=== PATIENT | female | born 1990 | race Caucasian/White ===

== ENCOUNTER 2018-11-23 20:38 | Emergency (ER) | payer OTHER ==
[~2018-11-23] VITALS: Ht 157.5 cm; Wt 45.4 kg
[2018-11-23 20:44] VITALS: BP 113/75
--- NOTE | 2018-11-23 20:45 | NUR ---
TO LOBBY A/W BED, RAY HAIR NOTED
--- NOTE | 2018-11-23 21:03 | NUR ---
PT TAKEN TO BED 9
--- NOTE | 2018-11-23 21:05 | NUR ---
ASSUMED CARE OF PT AT THIS TIME. C/O DIFFUSE ABDOMINAL PAIN W/ N/V X 12 HOURS. PT DENIES DIARRHEA, CONSTIPATION, OR URINARY COMPLAINTS. AAOX4 WITH EVEN AND STEADY GAIT; PATIENT STATES PAIN OF 8/10; VSS; PATIENT POSITIONED FOR COMFORT; HOB ELEVATED; BEDRAILS UP X2; BED DOWN. ER MD MADE AWARE OF PT STATUS. WILL CONTINUE TO MONITOR.
--- NOTE | 2018-11-23 21:37 | NUR ---
Dr. Joseph evaluating patient at bedside.
[2018-11-23] MEDS ORDERED: ONDANSETRON 4 MG/2 ML VIAL IVP ONE (22:00)
[2018-11-23] MEDS ORDERED: KETOROLAC 30 MG/ML VIAL IVP ONE (22:00)
[2018-11-23] MEDS ORDERED: NACL 0.9% 1,000 ML IV ONE (22:00)
[2018-11-23 22:45] VITALS: BP 114/74
--- NOTE | 2018-11-23 22:45 | NUR ---
Patient discharged with v/s stable. Written and verbal after care instructions given and explained. Patient alert, oriented and verbalized understanding of instructions. Ambulatory with steady gait. All questions addressed prior to discharge. ID band removed. Patient advised to follow up with PMD. Rx of TRAMADOL AND ZOFRAN given. Patient educated on indication of medication including possible reaction and side effects. Opportunity to ask questions provided and answered.
== END 2018-11-23 22:45 | disposition home or self-care (01) ==
LOC: MED 20:38
DX: N94.6 Dysmenorrhea, unspecified (principal)
CPT/HCPCS: 81002; 81025; 96374; 96375; 99283; J1885; J2405; J7030; 96361

== ENCOUNTER 2020-04-15 09:35 | Emergency (ER) | payer OTHER ==
[~2020-04-15] VITALS: Ht 157.5 cm; Wt 41.7 kg
--- NOTE | 2020-04-15 09:35 | NUR ---
PT AMBULATED TO ER BED 11
[2020-04-15 09:40] VITALS: BP 118/68
--- NOTE | 2020-04-15 09:47 | NUR ---
TO XRAY VIA W/C
--- NOTE | 2020-04-15 09:55 | NUR ---
PT BACK FROM XRAY VIA W/C
--- NOTE | 2020-04-15 10:03 | NUR ---
DR. HUSAIN EVALUATING PT AT BEDSIDE
[2020-04-15] MEDS ORDERED: LIDOCAINE MPF 1% 10 MG/ML VIAL INJ ONE (10:15)
[2020-04-15 10:55] VITALS: BP 120/71
--- NOTE | 2020-04-15 10:58 | NUR ---
PT EVALUATED AND D/C BY DR. HUSAIN. NO NURSING CARE/SERVICES RENDERED.
--- NOTE | 2020-04-15 10:58 | NUR ---
Patient discharged with v/s stable. Written and verbal after care instructions given and explained. Patient alert, oriented and verbalized understanding of instructions. Ambulatory with steady gait. All questions addressed prior to discharge. ID band removed. Patient advised to follow up with PMD. Rx of NORCO AND MOTRIN given. Patient educated on indication of medication including possible reaction and side effects. Opportunity to ask questions provided and answered.
== END 2020-04-15 10:58 | disposition home or self-care (01) ==
LOC: MED 09:35
DX: S62.613A Displaced fracture of proximal phalanx of left middle finger, initial encounter for closed fracture (principal); J45.909 Unspecified asthma, uncomplicated; W21.01XA Struck by football, initial encounter; Y93.61 Activity, american tackle football; Y92.89 Other specified places as the place of occurrence of the external cause; Y99.8 Other external cause status
CPT/HCPCS: 26750; 73140; 99284; J2001; 26725